=== PATIENT | female | born 1995 | race Caucasian/White ===

== ENCOUNTER 2016-11-11 16:31 | Emergency (ER) | payer OTHER ==
[~2016-11-11] VITALS: Ht 157.5 cm; Wt 56.4 kg
[2016-11-11 16:47] VITALS: BP 109/68; PULSE 77; RESP 16; O2SAT 99
== END 2016-11-11 16:50 | disposition left against medical advice (07) ==
LOC: SED 16:31
DX: R11.0 Nausea (principal); Z53.21 Procedure and treatment not carried out due to patient leaving prior to being seen by health care provider